=== PATIENT | female | born 1970 | race Two or more races ===

== ENCOUNTER 2022-07-17 18:33 | Inpatient (IN) | payer MEDICARE, MEDICAID ==
[~2022-07-17] VITALS: Ht 154.9 cm; Wt 102.1 kg
[2022-07-17] MEDS ORDERED: SODIUM CHLORIDE 0.9% 1,000 ML IV ONE (19:15)
[2022-07-17] MEDS ORDERED: CALC667T6 PO (19:52)
[2022-07-17] MEDS ORDERED: CINA30 PO (19:54)
[2022-07-17] MEDS ORDERED: SODI5POW3 PO (19:55)
[2022-07-17] MEDS ORDERED: MIDO5TAB5 PO (19:56)
[2022-07-17 19:58] LABS: BASOPHILS % (AUTO) 0.5 % (0.0-2.0); EOSINOPHILS % (AUTO) 0.7 % (1.0-6.0); HEMATOCRIT 32.2 % (36-46); HEMOGLOBIN 10.3 g/dL (12.0-16.0); LYMPHOCYTES # (AUTO) 0.9 K/uL (1.0-4.8); LYMPHOCYTES % (AUTO) 8.2 % (22.0-44.0); MEAN CORPUSCULAR HEMOGLOBIN 31.4 pg (26.0-34.0); MEAN CORPUSCULAR VOLUME 98 fL (80-100); MONOCYTES # (AUTO) 0.8 K/uL (0.1-1.0); MONOCYTES % (AUTO) 6.8 % (2.0-9.0); NEUTROPHILS # (AUTO) 9.3 K/uL (1.8-7.7); NEUTROPHILS % (AUTO) 83.8 % (40.0-70.0); PLATELET COUNT (AUTO) 220 K/uL (150-450); RED BLOOD CELL COUNT(AUTO) 3.29 MIL/uL (4.00-5.20); RED CELL DISTRIBUTION WIDTH 14.1 % (11.5-14.5)
[2022-07-17 20:06] LABS: CALCIUM, TOTAL 9.5 mg/dL (8.8-10.5); CREATININE 5.82 mg/dL (0.60-1.30); POTASSIUM 3.7 mmol/L (3.5-5.1)
[2022-07-17 20:09] LABS: PROTHROMBIN TIME 10.3 SEC (9.4-11.6)
[2022-07-17 20:11] LABS: ALBUMIN 3.8 g/dL (3.4-5.0); BILIRUBIN,TOTAL 0.7 mg/dL (0.1-1.0); TOTAL PROTEIN, SERUM 7.8 g/dL (6.4-8.2)
[2022-07-17] MEDS ORDERED: ONDANSETRON HCL 4 MG/2 ML VIAL IVP PRN ×2 (21:00)
[2022-07-17] MEDS: DOCUSATE SODIUM 100 MG CAPSULE PO SCH (21:00)
[2022-07-17] MEDS ORDERED: ACETAMINOPHEN 325 MG TABLET PO PRN ×2 (21:00)
[2022-07-17] MEDS: MIDODRINE HCL 5 MG TABLET PO SCH (21:23)
[2022-07-17] MEDS: HEPARIN SODIUM,PORCINE 5,000 UNITS/ML VIAL SQ SCH (23:44)
[2022-07-18 00:58] VITALS: BP 120/77
[2022-07-18 03:51] VITALS: BP 126/65
[2022-07-18 07:50] VITALS: BP 101/50
[2022-07-18] MEDS ORDERED: FAMOTIDINE 20 MG TABLET PO SCH (09:00)
[2022-07-18 09:15] LABS: BASOPHILS % (AUTO) 1.3 % (0.0-2.0); EOSINOPHILS % (AUTO) 3.1 % (1.0-6.0); HEMATOCRIT 31.6 % (36-46); HEMOGLOBIN 10.3 g/dL (12.0-16.0); LYMPHOCYTES # (AUTO) 1.6 K/uL (1.0-4.8); LYMPHOCYTES % (AUTO) 24.4 % (22.0-44.0); MEAN CORPUSCULAR HEMOGLOBIN 32.4 pg (26.0-34.0); MEAN CORPUSCULAR HGB CONC 32.7 G/dL (31.0-37.0); MEAN CORPUSCULAR VOLUME 99 fL (80-100); MONOCYTES # (AUTO) 0.7 K/uL (0.1-1.0); MONOCYTES % (AUTO) 10.6 % (2.0-9.0); NEUTROPHILS # (AUTO) 4.1 K/uL (1.8-7.7); NEUTROPHILS % (AUTO) 60.6 % (40.0-70.0); PLATELET COUNT (AUTO) 205 K/uL (150-450); RED BLOOD CELL COUNT(AUTO) 3.18 MIL/uL (4.00-5.20); RED CELL DISTRIBUTION WIDTH 14.6 % (11.5-14.5)
[2022-07-18] MEDS: DOCUSATE SODIUM 100 MG CAPSULE PO SCH (09:24)
[2022-07-18] MEDS: MIDODRINE HCL 5 MG TABLET PO SCH (09:25)
[2022-07-18] MEDS: HEPARIN SODIUM,PORCINE 5,000 UNITS/ML VIAL SQ SCH (09:27)
[2022-07-18 11:22] VITALS: BP 96/62
[2022-07-18] MEDS ORDERED: MIDODRINE HCL 5 MG TABLET PO ONE (11:45)
[2022-07-18 13:05] VITALS: BP 119/62
== END 2022-07-18 13:50 | disposition home or self-care (01) | DRG 314 ==
LOC: EMS 18:36 → 5S 07-18 00:01
PROVIDERS: ADMIT Internal Medicine; ATTEND Internal Medicine
DX: I95.9 Hypotension, unspecified (principal); N18.6 End stage renal disease; C22.0 Liver cell carcinoma; K92.2 Gastrointestinal hemorrhage, unspecified; E44.0 Moderate protein-calorie malnutrition; I49.5 Sick sinus syndrome; D63.8 Anemia in other chronic diseases classified elsewhere; E66.01 Morbid (severe) obesity due to excess calories; Z99.2 Dependence on renal dialysis; Z68.41 Body mass index [BMI] 40.0-44.9, adult; Z93.3 Colostomy status; Z90.49 Acquired absence of other specified parts of digestive tract; Z95.0 Presence of cardiac pacemaker
CPT/HCPCS: 71045; 74176; 80053; 83690; 84484; 85025; 85610; 85730; 93005; 99291; J1644; J7030; 36415-L1; 36415-TC